=== PATIENT | male | born 1940 | race Caucasian/White ===

== ENCOUNTER 2017-01-21 06:30 | Emergency (ER) | payer BC ==
[~2017-01-21] VITALS: Ht 190.5 cm; Wt 105.0 kg
[2017-01-21 06:31] VITALS: BP 162/88; PULSE 105; RESP 18; TEMP 98.1; O2SAT 95
[2017-01-21] MEDS ORDERED: LOSA50TA PO (06:40)
[2017-01-21] MEDS ORDERED: ALBUAER3 INH (06:40)
[2017-01-21] MEDS ORDERED: METO50TA PO (06:40)
[2017-01-21 07:05] VITALS: BP 158/83; PULSE 98; RESP 20; TEMP 97.8; O2SAT 96
--- NOTE | 2017-01-21 08:21 | PD ---
HPI Chief Complaint: Cold / Flu Symptoms Time Seen by Provider: 08:21 Travel History International Travel<30 days: No Contact w/Intl Traveler<30days: No Traveled to known affect area: No History of Present Illness HPI 76-year-old male came to the emergency room with history of cough that's been going on for close to 2 weeks now. Patient says that during Thanksgiving time he had family over was sick and since then both him and his has been sick. In fact his has checked in as a patient herself as well. Patient denies any fever or chills. Denies any chest pain. He also says that he has some sore throat. He has been using home remedies like salt water gargles and steam inhalation but he has not had any relief. Patient has history of COPD. He has been using his inhaler Pro Air 2 puffs morning and night. Vital signs were relatively stable. No shortness of breath per se. Patient is not a smoker and no history of pain PFSH Past Medical History Narrative Medical List of his past medical, surgical, social and family history is reviewed from the nursing note. COPD: Yes Diminished Hearing: No Hypertension: Yes Tetanus Vaccination: < 5 Years Past Surgical History Other Surgery: Yes (RIGHT KNEE REPLACEMENT ) Social History Alcohol Use: No Tobacco Use: No Substance Use: No Allergies-Medications (Allergen,Severity, Reaction): Coded Allergies: No Known Allergies (Unverified , 01/21/17) Comments No known drug allergies Reported Meds & Prescriptions Reported Meds & Active Scripts Active Prednisone 20 Mg Tab 20 Mg PO BID 5 Days Zithromax Z-Patel (Azithromycin) 250 Mg Dspk 250 Mg PO DIRECTED 500 MG (2 tabs) day 1, then 1 tab days 2-5. Reported Losartan (Losartan Potassium) 50 Mg Tab 50 Mg PO DAILY Metoprolol Tartrate 50 Mg Tab 50 Mg PO DAILY Proair Hfa 8.5 GM Inh (Albuterol Sulfate) 90 Mcg/Act Aer 2 Puff INH Q4-6H PRN 108 mcg/actuation Narrative Medication List of his home medications reviewed from the nursing note. Review of Systems Except as stated in HPI: all other systems reviewed are Neg HENT: Positive: Sore Throat Respiratory: Positive: Cough Physical Exam Narrative GENERAL: Awake, alert, obese, mild distress SKIN: Focused skin assessment warm/dry. HEAD: Atraumatic. Normocephalic. EYES: Pupils equal and round. No scleral icterus. No injection or drainage. ENT: No nasal bleeding or discharge. Mucous membranes pink and moist. NECK: Trachea midline. No JVD. CARDIOVASCULAR: Regular rate and rhythm. No murmur appreciated. RESPIRATORY: No accessory muscle use. End expiratory wheeze GASTROINTESTINAL: Abdomen soft, non-tender, nondistended. Hepatic and splenic margins not palpable. MUSCULOSKELETAL: No obvious deformities. No clubbing. No cyanosis. No edema. NEUROLOGICAL: Awake and alert. No obvious cranial nerve deficits. Motor grossly within normal limits. Normal speech. PSYCHIATRIC: Appropriate mood and affect; insight and judgment normal. Data Data Last Documented VS Orders Orders Group A Rapid Strep Screen (01/21/17 08:26) Chest, Pa & Lat (01/21/17 ) Albuterol-Ipratropium Neb (Duoneb Neb) (01/21/17 08:30) Ct Thorax/ Chest Wo Iv Contras (01/21/17 ) Strep Culture (Group A) (01/21/17 09:00) Ed Discharge Order (01/21/17 09:55) Prednisone (Deltasone) (01/21/17 10:15) MDM Medical Decision Making Medical Screen Exam Complete: Yes Emergency Medical Condition: Yes Medical Record Reviewed: Yes Differential Diagnosis Acute COPD exacerbation, bronchitis, CHF Narrative Course 10:10 AM strep swab was negative. Chest x-ray was read by the radiologist as questionable mass and CT was indicated. The CT was done and that has been read as scarring but otherwise negative. In my opinion this is not cardiac issue. I 'm comfortable discharging him home with prescription for steroid and antibiotic for bronchitis. Patient was given a dose of prednisone here. Procedures EKG Prior to Arrival: No Diagnosis Primary Impression: Bronchitis Additional Impression: Viral illness Referrals: Primary Care Physician 2 days Additional Instructions: Please return to the ER if the condition worsens or any other new concerns. Use inhaler 2 puffs every 6 hours still symptoms get better. Take the prescription medication as per the direction. Follow-up with your primary care in next couple days. Med/Other Pt SpecificInfo: Prescription(s) given Scripts Prednisone (Prednisone) 20 Mg Tab 20 MG PO BID for 5 Days, #10 TAB 0 Refills Prov: Gera Erickson MD 01/21/17 Azithromycin (Zithromax Z-Patel) 250 Mg Dspk 250 MG PO DIRECTED for Infection, #1 DSPK 0 Refills 500 MG (2 tabs) day 1, then 1 tab days 2-5. Prov: Gera Erickson MD 01/21/17 Disposition: 01 DISCHARGE HOME Condition: Stable Gera Erickson MD Jan 21, 2017 08:21
[2017-01-21] MEDS: RESP: ALBUTEROL 2.5 MG/IPRATROPIUM 0.5 MG NEB (SCH) INH (08:57)
--- NOTE | 2017-01-21 09:01 | RADRPT ---
EXAM DATE/TIME: 01/21/2017 08:46 [facility] COMPARISON: No previous studies available for comparison. INDICATIONS : Cough. Congestion. MEDICAL HISTORY : None. SURGICAL HISTORY : None. ENCOUNTER: Initial ACUITY: 3 days PAIN SCORE: 6/10 LOCATION: Bilateral chest FINDINGS: PA and lateral views of the chest demonstrate linear densities left lower lobe. Heart normal size. To rtuous thoracic aorta. Right apical density. The cardiomediastinal contours are unremarkable. Osseou s structures are intact. CONCLUSION: 1. Left basilar density likely scarring/subsegmental atelectasis. 2. Right apical density likely pleural-parenchymal scarring however CT chest recommended to insure no underlying mass. Shaheen Castellano MD on January 21, 2017 at 8:57 Board Certified Radiologist. This report was verified electronically.
[2017-01-21 09:30] VITALS: BP 112/71; PULSE 108; RESP 20; TEMP 97.8; O2SAT 95
--- NOTE | 2017-01-21 09:52 | RADRPT ---
EXAM DATE/TIME: 01/21/2017 09:34 [facility] COMPARISON: No previous studies available for comparison. INDICATIONS : Abnormal Chest Xray. Evaluate for right apical mass. RADIATION DOSE: 9.55 CTDIvol (mGy) MEDICAL HISTORY : Chronic obstructive pulmonary disease. SURGICAL HISTORY : None. ENCOUNTER: Initial ACUITY: 1 week PAIN SCALE: 0/10 LOCATION: Bilateral cranial TECHNIQUE: Volumetric scanning of the chest was performed. Using automated exposure control and adjustment of t he mA and/or kV according to patient size, radiation dose was kept as low as reasonably achievable to obtain optimal diagnostic quality images. DICOM format image data is available electronically for r eview and comparison. Follow-up recommendations for detected pulmonary nodules are based at a minimum on nodule size and pa tient risk factors according to Fleischner Society Guidelines. FINDINGS: LUNGS: There is no consolidation or pneumothorax. Parenchymal scarring in the right middle lobe and right lo wer lobe. Minimal apical density likely pleural parenchymal scarring. PLEURAE: There is no pleural thickening or pleural effusion. MEDIASTINUM: The heart and great vessels demonstrate no acute abnormality. There is no mediastinal or hilar lymph adenopathy. Pericardial thickening anteriorly. Minimal coronary artery calcifications. AXILLAE: Within normal limits. No lymphadenopathy. MUSCULOSKELETAL: Within normal limits for patient age. MISCELLANEOUS: The visualized upper abdominal organs demonstrate no acute abnormality. CONCLUSION: 1. Parenchymal scarring. 2. No mass or infiltrate. 3. Apical pleural thickening. Shaheen Castellano MD on January 21, 2017 at 9:46 Board Certified Radiologist. This report was verified electronically.
[2017-01-21] MEDS ORDERED: ZITHTAB PO (10:01)
[2017-01-21] MEDS ORDERED: PRED20 PO (10:01)
[2017-01-21 10:14] VITALS: BP 120/77; TEMP 97.8
[2017-01-21] MEDS ORDERED: predniSONE 20 MG TAB PO ONE (10:15)
== END 2017-01-21 10:14 | disposition home or self-care (01) ==
LOC: NEPE 06:30
DX: J40 Bronchitis, not specified as acute or chronic (principal); B34.9 Viral infection, unspecified; R07.0 Pain in throat; I10 Essential (primary) hypertension; Z87.09 Personal history of other diseases of the respiratory system
CPT/HCPCS: 71020; 71250; 87081; 87880; 94640; 94664; 99285; J7512